=== PATIENT | male | born 1975 | race Caucasian/White ===

== ENCOUNTER 2020-05-29 13:39 | Inpatient (IN) | payer OTHER ==
--- NOTE | 2020-05-29 14:23 | BHS.RME ---
Substance Use & Tx History - Substance Use History Heroin Substance amount: 3-4 bags Frequency of use: Daily Substance route: Inhalation (ex: sniffing or snorting) Date of Last Use: 05/27/20 Nicotine Substance amount: 2 packs Frequency of use: Daily Substance route: Smoking Date of Last Use: 05/28/20 Physical/Psych/Mental Status - Behavior General Behavior: Increased activity (restlessness, agitation) Eye Contact: Normal - Cooperativeness Cooperativeness: Cooperative - Thinking Thought Processes: Tight, Logical, Goal Directed Thought content: Future oriented - Physical Health Problems Is patient presently having any pain?: No Does patient presently have any injuries (include location): No Does patient currently have a fever: No Is patient : No COWS - Scale Resting Pulse: 0= [place] 80 or Below Sweatin=Flushed/Facial Moisture Restless Observation: 3= Extraneous Movement Pupil Size: 2= Moderately Dilated Bone or Joint Aches: 2= Severe Diffuse Aches Runny Nose/ Eye Tearin= Runny Nose/Eyes GI Upset > 30mins: 2= Nausea/Diarrhea Tremor Observation: 2= Slight Tremor Visible Yawning Observation: 2= >3x During Session Anxiety or Irritability: 2=Irritable/Anxious Goose Flesh Skin: 3=Piloerection COWS Score: 22
--- NOTE | 2020-05-29 15:01 | HP ---
<HanAnthony de león - Last Filed: 05/29/20 15:23> COWS - Scale Resting Pulse: 0= [place] 80 or Below Sweatin=Flushed/Facial Moisture Restless Observation: 5= Unable to Sit Still Pupil Size: 2= Moderately Dilated Bone or Joint Aches: 2= Severe Diffuse Aches Runny Nose/ Eye Tearin= Runny Nose/Eyes GI Upset > 30mins: 2= Nausea/Diarrhea Tremor Observation: 2= Slight Tremor Visible Yawning Observation: 2= >3x During Session Anxiety or Irritability: 2=Irritable/Anxious Goose Flesh Skin: 3=Piloerection COWS Score: 24 CIWA Score - Admission Criteria OASAS Guidelines: Admission for Medically Managed Detox: Requires at least one of the followin. CIWA greater than 12 2. Seizures within the past 24 hours 3. Delirium tremens within the past 24 hours 4. Hallucinations within the past 24 hours 5. Acute intervention needed for co occurring medical disorder 6. Acute intervention needed for co occurring psychiatric disorder 7. Severe withdrawal that cannot be handled at a lower level of care (continued vomiting, continued diarrhea, abnormal vital signs) requiring intravenous medication and/or fluids 8. Admitting History and Physical - Admission Chief Complaint: Patient is a 44 year old male with history of asthma, schizoaffective disorder, opiate use disorder, nicotine dependence presents for detox. History of Present Illness: Patient is a 44 year old male with history of asthma, schizoaffective disorder, opiate use disorder, nicotine dependence presents for detox. PMH: asthma PSH: plastic surgery left thumb, left arm, and left leg after dog attack (). Social: lives alone in [facility]. unemployed- former administrated vet assistant Psych: schizoaffective disorder Legal: none - Substance Use History Heroin Substance amount: 3-4 bags Frequency of use: Daily Substance route: Inhalation (ex: sniffing or snorting) Date of Last Use: 05/27/20. First use 35 years old. Nicotine Substance amount: 2 packs Frequency of use: Daily Substance route: Smoking Date of Last Use: 05/28/20. First use 17 years old This is patient's first presentation to [facility] for Detox History Source: Patient Limitations to Obtaining History: Clinical Condition - Smoking History Smoking history: Current every day smoker Have you smoked in the past 12 months: Yes Aproximately how many cigarettes per day: 40 - Alcohol/Substance Use Hx Alcohol Use: No - Social History Usual Living Arrangement: Yes: Alone History of Recent Travel: No Admission [facility] Chief Complaint: Patient is a 44 year old male with history of asthma, schizoaffective disorder, opiate use disorder, nicotine dependence presents for detox. Allergies/Adverse Reactions: Allergies Allergy/AdvReac Type Severity Reaction Status Date / Time No Known Allergies Allergy Verified 05/29/20 15:44 Exam Limitations: Clinical Condition - Ebola screening Have you traveled outside of the country in the last 21 days: No Have you been sick,other than usual withdrawal symptoms: No Do you have a fever: No - Review of Systems Constitutional: No Symptoms Reported EENT: denies: Blurred Vision, Hearing Loss Respiratory: denies: Cough, Shortness of Breath Cardiac: denies: Chest Pain (states chronic for past two years), Palpitations GI: denies: Nausea, Vomiting, Abdominal cramping : denies: Burning, Dysuria Musculoskeletal: reports: Other (diffuse myalgias). denies: Back Pain Integumentary: denies: Lesions, Rash Psychiatric: reports: Anxious Patient History - Patient Medical History Hx Anemia: No Hx Asthma: Yes Hx Chronic Obstructive Pulmonary Disease (COPD): No Hx Cancer: No Hx Cardiac Disorders: No Hx Congestive Heart Failure: No Hx Hypertension: No Hx Hypercholesterolemia: No Hx Pacemaker: No HX Cerebrovascular Accident: No Hx Seizures: No Hx Dementia: No Hx Diabetes: No Hx Gastrointestinal Disorders: No Hx Liver Disease: No Hx Genitourinary Disorders: No Hx Sexually Transmitted Disorders: No Hx Renal Disease (ESRD): No Hx Thyroid Disease: No Hx Human Immunodeficiency Virus (HIV): No Hx Hepatitis C: No Hx Depression: Yes Hx Suicide Attempt: No Hx Schizophrenia: Yes (schizoaffective disorder) - Patient Surgical History Past Surgical History: Yes Other Surgical History: plastic surgery right thumb, left arm, left leg - PPD History Previous Implant?: Yes Documented Results: Negative w/o proof Implanted On Prior [facility] Admission?: No PPD to be Administered?: Yes - Reproductive History Patient is a Female of Child Bearing Age (11 -55 yrs old): No Patient : No - Smoking Cessation Smoking history: Current every day smoker Have you smoked in the past 12 months: Yes Aproximately how many cigarettes per day: 40 Hx Chewing Tobacco Use: No Initiated information on smoking cessation: Yes 'Breaking Loose' booklet given: 05/29/20 - Substance & Tx. History Hx Alcohol Use: No Substance Use Type: Heroin Hx Substance Use Treatment: No - Substances abused Heroin Substance route: Inhalation Amount used: 3-4 bags daily Age of first use: 35 Date of last use: 05/27/20 Admission Physical Exam [facility] - Physical General Appearance: Yes: Appropriately Dressed, Irritable, Other (frequent, suddemn jerking motions with head) HEENTM: Yes: EOMI, Hearing grossly Normal Respiratory: Yes: Lungs Clear, No Respiratory Distress, No Accessory Muscle Use Neck: Yes: Supple Breast: Yes: Breast Exam Deferred Cardiology: Yes: Regular Rhythm, Regular Rate, S1, S2 Abdominal: Yes: Normal Bowel Sounds, Non Tender, Flat, Soft Musculoskeletal: Yes: Within Normal Limits, full range of Motion Extremities: Yes: Within Normal Limits, Normal Range of Motion Neurological: Yes: Alert, Motor Strength 5/5 Integumentary: Yes: Dry, Warm - Diagnostic (1) Opioid dependence with withdrawal Current Visit: Yes Status: Acute (2) Asthma Current Visit: No Status: Chronic Qualifiers: Asthma complication type: unspecified (3) Schizoaffective disorder Current Visit: No Status: Chronic Qualifiers: Schizoaffective disorder type: unspecified Qualified Code(s): F25.9 - Schizoaffective disorder, unspecified Cleared for Admission [facility] - Detox or Rehab [facility] Level of Care: Medically Managed Detox Regimen/Protocol: Methadone Claeared for Rehab Admission: No Breathalyzer - Breathalyzer Breathalyzer: 0 Urine Drug Screen - Test Device Lot number: [id number] Expiration date: 05/13/22 - Control Is test valid?: Yes - Results Drug screen NEGATIVE: No Urine drug screen results: KASSIE-Cocaine, MOP-Opiates Inpatient Rehab Admission - Rehab Decision to Admit Inpatient rehab admission?: No <Gideon Klein - Last Filed: 05/30/20 07:44> CIWA Score - Admission Criteria OASAS Guidelines: Admission for Medically Managed Detox: Requires at least one of the followin. CIWA greater than 12 2. Seizures within the past 24 hours 3. Delirium tremens within the past 24 hours 4. Hallucinations within the past 24 hours 5. Acute intervention needed for co occurring medical disorder 6. Acute intervention needed for co occurring psychiatric disorder 7. Severe withdrawal that cannot be handled at a lower level of care (continued vomiting, continued diarrhea, abnormal vital signs) requiring intravenous medication and/or fluids 8. Admission Physical Exam BHS - Vital Signs Vital Signs: Vital Signs - 24 hr 05/29/20 05/29/20 05/29/20 15:45 16:25 16:45 Temperature 97.9 F 97.1 F L 97.7 F Pulse Rate 71 71 63 Respiratory 20 18 18 Rate Blood Pressure 123/85 131/79 130/72 O2 Sat by Pulse Oximetry (%) 05/29/20 05/30/20 20:48 05:25 Temperature 97.7 F 97.8 F Pulse Rate 73 48 L Respiratory 18 18 Rate Blood Pressure 97/56 L 92/54 L O2 Sat by Pulse 97 97 Oximetry (%) Vital Signs - Vital Signs Vital signs refused: No Temperature: 97.1 F Temperature source: Oral Pulse Rate: 71 Respiratory Rate: 18 Blood Pressure: 131/79 BP Location: Left Arm Blood Pressure position: Sitting - Weight Weight measurement method: Standing scale
[2020-05-29] MEDS ORDERED: MAGNESIUM CITRATE 300 ML BOTTLE PO PRN (15:11)
[2020-05-29] MEDS ORDERED: MENTHOL/PHENOL 1 EACH UD MM PRN (15:11)
[2020-05-29] MEDS ORDERED: BISMUTH SUBSALICYLATE 524 MG/30 ML UD PO PRN (15:11)
[2020-05-29] MEDS ORDERED: MAG HYDROX/AL HYDROX/SIMETH 30 ML UNIT-DOSE CUP PO PRN (15:11)
[2020-05-29] MEDS ORDERED: ACETAMINOPHEN 325 MG TABLET (FP) PO PRN ×2 (15:11)
[2020-05-29] MEDS ORDERED: IBUPROFEN 400 MG TABLET (FP) PO PRN (15:11)
[2020-05-29] MEDS ORDERED: cloNIDine HCL 0.1 MG TABLET PO PRN (15:11)
[2020-05-29] MEDS ORDERED: ONDANSETRON *ODT* 4 MG TABLET SL PRN (15:11)
[2020-05-29] MEDS ORDERED: NICOTINE POLACRILEX 2 MG GUM BUC PRN (15:11)
[2020-05-29 15:47] VITALS: BMI 22.2
[2020-05-29] MEDS ORDERED: METHADONE HCL 10 MG TABLET (FOR DETOX USE ONLY) PO ONE (16:00)
[2020-05-29] MEDS ORDERED: ALBUTEROL SO4 HFA INHALER IH ONE (17:06)
--- NOTE | 2020-05-29 17:06 | PN ---
BHS Progress Note Note: pt w/ h.o asthma requesting inhaler P : Albuterol inhaler ordered
[2020-05-29] MEDS: NICOTINE 21 MG/24 HOURS TOPICAL PATCH TD SCH (17:24)
[2020-05-29] MEDS: ALBUTEROL SO4 HFA INHALER IH PRN (17:25)
[2020-05-29] MEDS: METHOCARBAMOL 500 MG TABLET PO PRN (17:32)
[2020-05-29] MEDS: hydrOXYzine PAMOATE 25 MG CAPSULE (FP) PO SCH ×2 (17:32→22:30)
[2020-05-29] MEDS ORDERED: MELATONIN 5 MG TABLETS PO SCH (22:00)
[2020-05-29] MEDS: MONTELUKAST NA 10 MG TABLET PO SCH (22:30)
[2020-05-29] MEDS: THIAMINE HCL 100 MG TABLET (FP) PO SCH (22:30)
[2020-05-29] MEDS: UMECLIDINIUM BROMIDE IH SCH (23:50)
[2020-05-30] MEDS: hydrOXYzine PAMOATE 25 MG CAPSULE (FP) PO SCH ×5 (05:30→22:25)
--- NOTE | 2020-05-30 08:00 | PN ---
Teaching Attending Note Name of Resident: Anthony Quezada ATTENDING PHYSICIAN STATEMENT I saw and evaluated the patient. I reviewed the resident's note and discussed the case with the resident. I agree with the resident's findings and plan as documented. SUBJECTIVE: OBJECTIVE: ASSESSMENT AND PLAN: I agree with resident's plan for detox
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
[2020-05-30] MEDS ORDERED: METHADONE HCL 10 MG TABLET (FOR DETOX USE ONLY) ONE (09:34)
[2020-05-30] MEDS ORDERED: METHADONE HCL 5 MG TABLET (FOR DETOX USE ONLY) ONE (09:34)
[2020-05-30] MEDS ORDERED: METHADONE (DETOX) 20 MG, METHADONE (DETOX) 5 MG PO ONE (10:00)
[2020-05-30] MEDS: NICOTINE 21 MG/24 HOURS TOPICAL PATCH TD SCH (10:11)
[2020-05-30] MEDS: PRENATAL VITAMINS W/ FOLIC ACID TABLET (FP) PO SCH (10:11)
[2020-05-30 10:23] LABS: HEMATOCRIT 43.3 % (35.4-49); HEMOGLOBIN 14.8 GM/dL (11.7-16.9); MCHC 34.2 g/dl (32.0-35.9); MEAN CELL VOLUME 90.5 fl (80-96); MEAN PLT VOLUME 8.8 fl (7.5-11.1); PLATELET COUNT 182 K/MM3 (134-434); RBC 4.78 M/mm3 (4.00-5.60); RDW 13.4 % (11.9-15.9); WHITE BLOOD COUNT 8.5 K/mm3 (4.0-10.0)
[2020-05-30 10:31] LABS: ALBUMIN 3.7 g/dl (3.4-5.0); BLOOD UREA NITROGEN 16.4 mg/dL (7-18); CALCIUM 8.8 mg/dL (8.5-10.1); POTASSIUM 4.3 mmol/L (3.5-5.1)
[2020-05-30 10:34] LABS: BILIRUBIN,TOTAL 0.9 mg/dL (0.2-1); CREATININE 1.1 mg/dL (0.55-1.3); TOT PROT 6.2 g/dl (6.4-8.2)
--- NOTE | 2020-05-30 10:38 | EKG ---
Test Reason : Blood Pressure : / mmHG Vent. Rate : 061 BPM Atrial Rate : 061 BPM P-R Int : 142 ms QRS Dur : 098 ms QT Int : 402 ms P-R-T Axes : 057 063 065 degrees QTc Int : 404 ms NORMAL SINUS RHYTHM NORMAL ECG NO PREVIOUS ECGS AVAILABLE Confirmed by STUART BENJAMIN MD ([id number]) on 05/30/2020 10:37:42 AM Referred By: Confirmed By:STUART BENJAMIN MD
[2020-05-30] MEDS: SALMETEROL IH SCH (10:58)
[2020-05-30] MEDS: FLUTICASONE IH SCH (10:58)
[2020-05-30] MEDS: [UNRECOGNIZED DRUG - OTHER] IH SCH (10:58)
[2020-05-30] MEDS: SERTRALINE HCL 50 MG TABLET (FP) PO SCH (10:58)
[2020-05-30] MEDS: UMECLIDINIUM BROMIDE IH SCH ×2 (10:58→22:24)
--- NOTE | 2020-05-30 14:00 | PN ---
BHS COWS - Scale Resting Pulse: 0= [place] 80 or Below Sweatin= No chills or Flushing Restless Observation: 0= Sits Still Pupil Size: 1= Pupils >than Normal Bone or Joint Aches: 1= Mild Discomfort Runny Nose/ Eye Tearin= Nasal Congestion GI Upset > 30mins: 2= Nausea/Diarrhea Tremor Observation of Outstretched Hands: 2= Slight Tremor Visible Yawning Observation: 1= 1-2x During Session Anxiety or Irritability: 2=Irritable/Anxious Goose Flesh Skin: 0=Smooth Skin COWS Score: 10 BHS Progress Note (SOAP) Subjective: alert,irritable,anxious,interrupted sleep,pain in the body and back,aching pain Objective: 05/30/20 15:37 Vital Signs Temperature 98.1 F 05/30/20 12:48 Pulse Rate 74 05/30/20 12:48 Respiratory Rate 17 05/30/20 12:48 Blood Pressure 98/52 L 05/30/20 12:48 O2 Sat by Pulse Oximetry (%) 99 05/30/20 12:48 05/30/20 15:37 Laboratory Last Values WBC 8.5 K/mm3 (4.0-10.0) 05/30/20 07:50 RBC 4.78 M/mm3 (4.00-5.60) 05/30/20 07:50 Hgb 14.8 GM/dL (11.7-16.9) 05/30/20 07:50 Hct 43.3 % (35.4-49) 05/30/20 07:50 MCV 90.5 fl (80-96) 05/30/20 07:50 MCH 31.0 pg (25.7-33.7) 05/30/20 07:50 MCHC 34.2 g/dl (32.0-35.9) 05/30/20 07:50 RDW 13.4 % (11.9-15.9) 05/30/20 07:50 Plt Count 182 K/MM3 (134-434) 05/30/20 07:50 MPV 8.8 fl (7.5-11.1) 05/30/20 07:50 Sodium 142 mmol/L (136-145) 05/30/20 07:50 Potassium 4.3 mmol/L (3.5-5.1) 05/30/20 07:50 Chloride 110 mmol/L (98-107) H 05/30/20 07:50 Carbon Dioxide 28 mmol/L (21-32) 05/30/20 07:50 Anion Gap 4 MMOL/L (8-16) L 05/30/20 07:50 BUN 16.4 mg/dL (7-18) 05/30/20 07:50 Creatinine 1.1 mg/dL (0.55-1.3) 05/30/20 07:50 Est GFR (CKD-EPI)AfAm 94.13 05/30/20 07:50 Est GFR (CKD-EPI)NonAf 81.21 05/30/20 07:50 Random Glucose 82 mg/dL (74-106) 05/30/20 07:50 Calcium 8.8 mg/dL (8.5-10.1) 05/30/20 07:50 Total Bilirubin 0.9 mg/dL (0.2-1) 05/30/20 07:50 AST 16 U/L (15-37) 05/30/20 07:50 ALT 27 U/L (13-61) 05/30/20 07:50 Alkaline Phosphatase 81 U/L (45-117) 05/30/20 07:50 Total Protein 6.2 g/dl (6.4-8.2) L 05/30/20 07:50 Albumin 3.7 g/dl (3.4-5.0) 05/30/20 07:50 Syphilis Serology Non-reactive (NONREACTIVE) 05/30/20 07:50 Assessment: 05/30/20 15:38 withdrawal symptom Plan: continue detox methadone regimen,Dr Barfield consultation greatly appreciated
[2020-05-30] MEDS: METHOCARBAMOL 500 MG TABLET PO PRN (19:12)
[2020-05-30] MEDS: THIAMINE HCL 100 MG TABLET (FP) PO SCH (22:22)
[2020-05-30] MEDS: BENZTROPINE MESYLATE 1 MG TABLET PO SCH (22:22)
[2020-05-30] MEDS: risperiDONE 2 MG TABLET PO SCH (22:22)
[2020-05-30] MEDS: MONTELUKAST NA 10 MG TABLET PO SCH (22:22)
[2020-05-30] MEDS: ALBUTEROL SO4 HFA INHALER IH PRN (22:24)
[2020-05-31] MEDS: hydrOXYzine PAMOATE 25 MG CAPSULE (FP) PO SCH ×5 (07:13→22:06)
[2020-05-31] MEDS ORDERED: METHADONE HCL 10 MG TABLET (FOR DETOX USE ONLY) PO ONE (10:00)
--- NOTE | 2020-05-31 10:26 | PN ---
BHS COWS - Scale Resting Pulse: 0= [place] 80 or Below Sweatin= Chills/Flushing Restless Observation: 1= Difficult to Sit Still Pupil Size: 0= Normal to Room Light Bone or Joint Aches: 2= Severe Diffuse Aches Runny Nose/ Eye Tearin= None GI Upset > 30mins: 0= None Tremor Observation of Outstretched Hands: 2= Slight Tremor Visible Yawning Observation: 0= None Anxiety or Irritability: 1=Feels Anxious/Irritable Goose Flesh Skin: 0=Smooth Skin COWS Score: 7 BHS Progress Note (SOAP) Subjective: Complaints of anxiety, tremors, sweats and body aches. Objective: 05/31/20 10:24 Vital Signs 05/31/20 05:53 Temperature 97.8 F Pulse Rate 56 L Respiratory 16 Rate Blood Pressure 99/66 O2 Sat by Pulse 96 Oximetry (%) Laboratory Last Values WBC 8.5 K/mm3 (4.0-10.0) 05/30/20 07:50 RBC 4.78 M/mm3 (4.00-5.60) 05/30/20 07:50 Hgb 14.8 GM/dL (11.7-16.9) 05/30/20 07:50 Hct 43.3 % (35.4-49) 05/30/20 07:50 MCV 90.5 fl (80-96) 05/30/20 07:50 MCH 31.0 pg (25.7-33.7) 05/30/20 07:50 MCHC 34.2 g/dl (32.0-35.9) 05/30/20 07:50 RDW 13.4 % (11.9-15.9) 05/30/20 07:50 Plt Count 182 K/MM3 (134-434) 05/30/20 07:50 MPV 8.8 fl (7.5-11.1) 05/30/20 07:50 Sodium 142 mmol/L (136-145) 05/30/20 07:50 Potassium 4.3 mmol/L (3.5-5.1) 05/30/20 07:50 Chloride 110 mmol/L (98-107) H 05/30/20 07:50 Carbon Dioxide 28 mmol/L (21-32) 05/30/20 07:50 Anion Gap 4 MMOL/L (8-16) L 05/30/20 07:50 BUN 16.4 mg/dL (7-18) 05/30/20 07:50 Creatinine 1.1 mg/dL (0.55-1.3) 05/30/20 07:50 Est GFR (CKD-EPI)AfAm 94.13 05/30/20 07:50 Est GFR (CKD-EPI)NonAf 81.21 05/30/20 07:50 Random Glucose 82 mg/dL (74-106) 05/30/20 07:50 Calcium 8.8 mg/dL (8.5-10.1) 05/30/20 07:50 Total Bilirubin 0.9 mg/dL (0.2-1) 05/30/20 07:50 AST 16 U/L (15-37) 05/30/20 07:50 ALT 27 U/L (13-61) 05/30/20 07:50 Alkaline Phosphatase 81 U/L (45-117) 05/30/20 07:50 Total Protein 6.2 g/dl (6.4-8.2) L 05/30/20 07:50 Albumin 3.7 g/dl (3.4-5.0) 05/30/20 07:50 Syphilis Serology Non-reactive (NONREACTIVE) 05/30/20 07:50 COVID-19 (LINDA) Not detected (Not Detected) 05/29/20 16:00 Labs noted. Assessment: 05/31/20 10:25 Alert and oriented x 3, in no acute respiratory distress. Full ROM, ambulating in the unit without assistance. Withdrawal symptoms. Plan: Continue detox protocol
[2020-05-31] MEDS: UMECLIDINIUM BROMIDE IH SCH ×2 (10:40→22:04)
[2020-05-31] MEDS: [UNRECOGNIZED DRUG - OTHER] IH SCH (10:40)
[2020-05-31] MEDS: FLUTICASONE IH SCH (10:40)
[2020-05-31] MEDS: ALBUTEROL SO4 HFA INHALER IH PRN (10:40)
[2020-05-31] MEDS: SALMETEROL IH SCH (10:40)
[2020-05-31] MEDS: SERTRALINE HCL 50 MG TABLET (FP) PO SCH (10:41)
[2020-05-31] MEDS: NICOTINE POLACRILEX 4 MG GUM BUC PRN ×2 (10:42→14:06)
[2020-05-31] MEDS: PRENATAL VITAMINS W/ FOLIC ACID TABLET (FP) PO SCH (10:42)
[2020-05-31] MEDS: NICOTINE 21 MG/24 HOURS TOPICAL PATCH TD SCH (10:42)
[2020-05-31] MEDS: METHOCARBAMOL 500 MG TABLET PO PRN (17:21)
[2020-05-31] MEDS: risperiDONE 2 MG TABLET PO SCH (22:05)
[2020-05-31] MEDS: BENZTROPINE MESYLATE 1 MG TABLET PO SCH (22:05)
[2020-05-31] MEDS: THIAMINE HCL 100 MG TABLET (FP) PO SCH (22:06)
[2020-05-31] MEDS: MELATONIN 5 MG TABLETS PO PRN (22:06)
[2020-05-31] MEDS: MONTELUKAST NA 10 MG TABLET PO SCH (22:06)
[2020-05-31] MEDS: MAGNESIUM HYDROX 2400MG/30ML ORAL SUSPENSION 30 ML CUP PO PRN (22:35)
[2020-06-01] MEDS: hydrOXYzine PAMOATE 25 MG CAPSULE (FP) PO SCH ×5 (06:37→21:43)
[2020-06-01] MEDS ORDERED: METHADONE HCL 10 MG TABLET (FOR DETOX USE ONLY) ONE (09:10)
[2020-06-01] MEDS ORDERED: METHADONE HCL 5 MG TABLET (FOR DETOX USE ONLY) ONE (09:10)
[2020-06-01] MEDS ORDERED: METHADONE (DETOX) 10 MG, METHADONE (DETOX) 5 MG PO ONE (10:00)
[2020-06-01] MEDS: UMECLIDINIUM BROMIDE IH SCH ×2 (10:19→21:42)
[2020-06-01] MEDS: [UNRECOGNIZED DRUG - OTHER] IH SCH (10:20)
[2020-06-01] MEDS: PRENATAL VITAMINS W/ FOLIC ACID TABLET (FP) PO SCH (10:20)
[2020-06-01] MEDS: FLUTICASONE IH SCH (10:20)
[2020-06-01] MEDS: SERTRALINE HCL 50 MG TABLET (FP) PO SCH (10:20)
[2020-06-01] MEDS: SALMETEROL IH SCH (10:20)
[2020-06-01] MEDS: NICOTINE 21 MG/24 HOURS TOPICAL PATCH TD SCH (10:21)
--- NOTE | 2020-06-01 13:20 | PN ---
BHS COWS - Scale Resting Pulse: 1= [place] 81-100 Sweatin= No chills or Flushing Restless Observation: 1= Difficult to Sit Still Pupil Size: 0= Normal to Room Light Bone or Joint Aches: 2= Severe Diffuse Aches Runny Nose/ Eye Tearin= None GI Upset > 30mins: 0= None Tremor Observation of Outstretched Hands: 1= Tremor [place], Not Seen Yawning Observation: 0= None Anxiety or Irritability: 2=Irritable/Anxious Goose Flesh Skin: 0=Smooth Skin COWS Score: 7 BHS Progress Note (SOAP) Subjective: complaints of sweats, joint aches, anxiety and tremors. Objective: 06/01/20 13:19 Vital Signs 06/01/20 09:07 Temperature 98.9 F Pulse Rate 96 H Respiratory 18 Rate Blood Pressure 94/62 Laboratory Last Values WBC 8.5 K/mm3 (4.0-10.0) 05/30/20 07:50 RBC 4.78 M/mm3 (4.00-5.60) 05/30/20 07:50 Hgb 14.8 GM/dL (11.7-16.9) 05/30/20 07:50 Hct 43.3 % (35.4-49) 05/30/20 07:50 MCV 90.5 fl (80-96) 05/30/20 07:50 MCH 31.0 pg (25.7-33.7) 05/30/20 07:50 MCHC 34.2 g/dl (32.0-35.9) 05/30/20 07:50 RDW 13.4 % (11.9-15.9) 05/30/20 07:50 Plt Count 182 K/MM3 (134-434) 05/30/20 07:50 MPV 8.8 fl (7.5-11.1) 05/30/20 07:50 Sodium 142 mmol/L (136-145) 05/30/20 07:50 Potassium 4.3 mmol/L (3.5-5.1) 05/30/20 07:50 Chloride 110 mmol/L (98-107) H 05/30/20 07:50 Carbon Dioxide 28 mmol/L (21-32) 05/30/20 07:50 Anion Gap 4 MMOL/L (8-16) L 05/30/20 07:50 BUN 16.4 mg/dL (7-18) 05/30/20 07:50 Creatinine 1.1 mg/dL (0.55-1.3) 05/30/20 07:50 Est GFR (CKD-EPI)AfAm 94.13 05/30/20 07:50 Est GFR (CKD-EPI)NonAf 81.21 05/30/20 07:50 Random Glucose 82 mg/dL (74-106) 05/30/20 07:50 Calcium 8.8 mg/dL (8.5-10.1) 05/30/20 07:50 Total Bilirubin 0.9 mg/dL (0.2-1) 05/30/20 07:50 AST 16 U/L (15-37) 05/30/20 07:50 ALT 27 U/L (13-61) 05/30/20 07:50 Alkaline Phosphatase 81 U/L (45-117) 05/30/20 07:50 Total Protein 6.2 g/dl (6.4-8.2) L 05/30/20 07:50 Albumin 3.7 g/dl (3.4-5.0) 05/30/20 07:50 Syphilis Serology Non-reactive (NONREACTIVE) 05/30/20 07:50 COVID-19 (LINDA) Not detected (Not Detected) 05/29/20 16:00 Labs noted. Assessment: 06/01/20 13:19 Patient was seen and examined at bedside. Alert and oriented x 3, in no acute respiratory distress. Full ROM, ambulatory without assistance. Withdrawal symptoms. Plan: Continue detox protocol.
[2020-06-01] MEDS: NICOTINE POLACRILEX 4 MG GUM BUC PRN ×3 (13:33→21:50)
[2020-06-01] MEDS ORDERED: IBUPROFEN 400 MG TABLET (FP) PO PRN (19:09)
[2020-06-01] MEDS: MONTELUKAST NA 10 MG TABLET PO SCH (21:42)
[2020-06-01] MEDS: BENZTROPINE MESYLATE 1 MG TABLET PO SCH (21:43)
[2020-06-01] MEDS: risperiDONE 2 MG TABLET PO SCH (21:43)
[2020-06-01] MEDS: THIAMINE HCL 100 MG TABLET (FP) PO SCH (21:44)
[2020-06-01] MEDS: MELATONIN 5 MG TABLETS PO PRN (21:45)
[2020-06-01] MEDS: ALBUTEROL SO4 HFA INHALER IH PRN (21:49)
[2020-06-01] MEDS: MAGNESIUM HYDROX 2400MG/30ML ORAL SUSPENSION 30 ML CUP PO PRN (22:07)
[2020-06-02] MEDS: NICOTINE POLACRILEX 4 MG GUM BUC PRN ×4 (05:35→21:39)
[2020-06-02] MEDS: hydrOXYzine PAMOATE 25 MG CAPSULE (FP) PO SCH ×5 (05:35→21:36)
[2020-06-02] MEDS: ALBUTEROL SO4 HFA INHALER IH PRN (05:38)
[2020-06-02] MEDS ORDERED: METHADONE HCL 10 MG TABLET (FOR DETOX USE ONLY) PO ONE (10:00)
[2020-06-02] MEDS: PRENATAL VITAMINS W/ FOLIC ACID TABLET (FP) PO SCH (10:22)
[2020-06-02] MEDS: [UNRECOGNIZED DRUG - OTHER] IH SCH (10:23)
[2020-06-02] MEDS: UMECLIDINIUM BROMIDE IH SCH ×2 (10:23→21:36)
[2020-06-02] MEDS: FLUTICASONE IH SCH (10:23)
[2020-06-02] MEDS: NICOTINE 21 MG/24 HOURS TOPICAL PATCH TD SCH (10:23)
[2020-06-02] MEDS: SALMETEROL IH SCH (10:23)
[2020-06-02] MEDS: SERTRALINE HCL 50 MG TABLET (FP) PO SCH (10:25)
--- NOTE | 2020-06-02 10:42 | PN ---
BHS COWS - Scale Resting Pulse: 0= [place] 80 or Below Sweatin= No chills or Flushing Restless Observation: 0= Sits Still Pupil Size: 1= Pupils >than Normal Bone or Joint Aches: 1= Mild Discomfort Runny Nose/ Eye Tearin= Nasal Congestion GI Upset > 30mins: 1= Stomach Cramp Tremor Observation of Outstretched Hands: 2= Slight Tremor Visible Yawning Observation: 1= 1-2x During Session Anxiety or Irritability: 2=Irritable/Anxious Goose Flesh Skin: 0=Smooth Skin COWS Score: 9 BHS Progress Note (SOAP) Subjective: alert,irritable,anxious,interrupted sleep,aching pain of body and back, Objective: 06/02/20 10:41 Vital Signs Temperature 96.3 F L 06/02/20 08:35 Pulse Rate 65 06/02/20 08:35 Respiratory Rate 20 06/02/20 08:35 Blood Pressure 100/65 06/02/20 08:35 O2 Sat by Pulse Oximetry (%) 96 06/02/20 05:24 Laboratory Last Values WBC 8.5 K/mm3 (4.0-10.0) 05/30/20 07:50 RBC 4.78 M/mm3 (4.00-5.60) 05/30/20 07:50 Hgb 14.8 GM/dL (11.7-16.9) 05/30/20 07:50 Hct 43.3 % (35.4-49) 05/30/20 07:50 MCV 90.5 fl (80-96) 05/30/20 07:50 MCH 31.0 pg (25.7-33.7) 05/30/20 07:50 MCHC 34.2 g/dl (32.0-35.9) 05/30/20 07:50 RDW 13.4 % (11.9-15.9) 05/30/20 07:50 Plt Count 182 K/MM3 (134-434) 05/30/20 07:50 MPV 8.8 fl (7.5-11.1) 05/30/20 07:50 Sodium 142 mmol/L (136-145) 05/30/20 07:50 Potassium 4.3 mmol/L (3.5-5.1) 05/30/20 07:50 Chloride 110 mmol/L (98-107) H 05/30/20 07:50 Carbon Dioxide 28 mmol/L (21-32) 05/30/20 07:50 Anion Gap 4 MMOL/L (8-16) L 05/30/20 07:50 BUN 16.4 mg/dL (7-18) 05/30/20 07:50 Creatinine 1.1 mg/dL (0.55-1.3) 05/30/20 07:50 Est GFR (CKD-EPI)AfAm 94.13 05/30/20 07:50 Est GFR (CKD-EPI)NonAf 81.21 05/30/20 07:50 Random Glucose 82 mg/dL (74-106) 05/30/20 07:50 Calcium 8.8 mg/dL (8.5-10.1) 05/30/20 07:50 Total Bilirubin 0.9 mg/dL (0.2-1) 05/30/20 07:50 AST 16 U/L (15-37) 05/30/20 07:50 ALT 27 U/L (13-61) 05/30/20 07:50 Alkaline Phosphatase 81 U/L (45-117) 05/30/20 07:50 Total Protein 6.2 g/dl (6.4-8.2) L 05/30/20 07:50 Albumin 3.7 g/dl (3.4-5.0) 05/30/20 07:50 Syphilis Serology Non-reactive (NONREACTIVE) 05/30/20 07:50 COVID-19 (LINDA) Not detected (Not Detected) 05/29/20 16:00 Assessment: 06/02/20 10:42 withdrawal symptom Plan: continue detox methadone regimen,discharge in am
[2020-06-02] MEDS: risperiDONE 2 MG TABLET PO SCH (21:36)
[2020-06-02] MEDS: BENZTROPINE MESYLATE 1 MG TABLET PO SCH (21:36)
[2020-06-02] MEDS: THIAMINE HCL 100 MG TABLET (FP) PO SCH (21:36)
[2020-06-02] MEDS: MONTELUKAST NA 10 MG TABLET PO SCH (21:36)
[2020-06-02] MEDS: MELATONIN 5 MG TABLETS PO PRN (21:37)
[2020-06-03] MEDS ORDERED: METHADONE HCL 5 MG TABLET (FOR DETOX USE ONLY) PO ONE (06:00)
[2020-06-03] MEDS: hydrOXYzine PAMOATE 25 MG CAPSULE (FP) PO SCH ×2 (06:07→10:24)
[2020-06-03] MEDS: ALBUTEROL SO4 HFA INHALER IH PRN (09:04)
[2020-06-03] MEDS: SALMETEROL IH SCH (09:05)
[2020-06-03] MEDS: [UNRECOGNIZED DRUG - OTHER] IH SCH (09:05)
[2020-06-03] MEDS: FLUTICASONE IH SCH (09:05)
[2020-06-03] MEDS: NICOTINE POLACRILEX 4 MG GUM BUC PRN (09:20)
[2020-06-03] MEDS: SERTRALINE HCL 50 MG TABLET (FP) PO SCH (10:24)
[2020-06-03] MEDS: NICOTINE 21 MG/24 HOURS TOPICAL PATCH TD SCH (10:25)
[2020-06-03] MEDS: PRENATAL VITAMINS W/ FOLIC ACID TABLET (FP) PO SCH (10:25)
[2020-06-03] MEDS: UMECLIDINIUM BROMIDE IH SCH (10:25)
[2020-06-03 11:20] VITALS: BP 98/58; PULSE 74; TEMP 97.3
--- NOTE | 2020-06-03 11:38 | PN ---
BHS COWS - Scale Resting Pulse: 0= [place] 80 or Below Sweatin= No chills or Flushing Restless Observation: 0= Sits Still Pupil Size: 0= Normal to Room Light Bone or Joint Aches: 0= None Runny Nose/ Eye Tearin= None GI Upset > 30mins: 0= None Tremor Observation of Outstretched Hands: 0= None Yawning Observation: 0= None Anxiety or Irritability: 1=Feels Anxious/Irritable Goose Flesh Skin: 0=Smooth Skin COWS Score: 1 BHS Progress Note (SOAP) Subjective: alert,no complaint Objective: 06/03/20 11:37 Vital Signs Temperature 97.3 F L 06/03/20 08:43 Pulse Rate 74 06/03/20 08:43 Respiratory Rate 16 06/03/20 08:43 Blood Pressure 98/58 L 06/03/20 08:43 O2 Sat by Pulse Oximetry (%) 99 06/03/20 08:43 Assessment: 06/03/20 11:39 detox completed,no withdrawal symptom Plan: stable for discharge today,follow up with after care program as arrangement [facility] for evaluation
--- NOTE | 2020-06-03 11:42 | DS ---
[facility] Detox Discharge Summary Admission Date: 05/29/20 Discharge Date: 06/03/20 - History Present History: Opioid Dependence Additional Comments: alert,oriented x3 ambulation on the unit lung clear bilaterally on auscultation no abdominal pain no swelling of legs stable for discharge today follow up with after care program as arrangement ,[facility] also medical provider and [employer] left the unit in stable condiction total time spending on discharge 35 minutes Pertinent Past History: asthma schizoaffective disorder - Physical Exam Results Vital Signs: Vital Signs Temperature 97.3 F L 06/03/20 08:43 Pulse Rate 74 06/03/20 08:43 Respiratory Rate 16 06/03/20 08:43 Blood Pressure 98/58 L 06/03/20 08:43 O2 Sat by Pulse Oximetry (%) 99 06/03/20 08:43 Pertinent Admission Physical Exam Findings: withdrawal signs and symptom Laboratory Last Values WBC 8.5 K/mm3 (4.0-10.0) 05/30/20 07:50 RBC 4.78 M/mm3 (4.00-5.60) 05/30/20 07:50 Hgb 14.8 GM/dL (11.7-16.9) 05/30/20 07:50 Hct 43.3 % (35.4-49) 05/30/20 07:50 MCV 90.5 fl (80-96) 05/30/20 07:50 MCH 31.0 pg (25.7-33.7) 05/30/20 07:50 MCHC 34.2 g/dl (32.0-35.9) 05/30/20 07:50 RDW 13.4 % (11.9-15.9) 05/30/20 07:50 Plt Count 182 K/MM3 (134-434) 05/30/20 07:50 MPV 8.8 fl (7.5-11.1) 05/30/20 07:50 Sodium 142 mmol/L (136-145) 05/30/20 07:50 Potassium 4.3 mmol/L (3.5-5.1) 05/30/20 07:50 Chloride 110 mmol/L (98-107) H 05/30/20 07:50 Carbon Dioxide 28 mmol/L (21-32) 05/30/20 07:50 Anion Gap 4 MMOL/L (8-16) L 05/30/20 07:50 BUN 16.4 mg/dL (7-18) 05/30/20 07:50 Creatinine 1.1 mg/dL (0.55-1.3) 05/30/20 07:50 Est GFR (CKD-EPI)AfAm 94.13 05/30/20 07:50 Est GFR (CKD-EPI)NonAf 81.21 05/30/20 07:50 Random Glucose 82 mg/dL (74-106) 05/30/20 07:50 Calcium 8.8 mg/dL (8.5-10.1) 05/30/20 07:50 Total Bilirubin 0.9 mg/dL (0.2-1) 05/30/20 07:50 AST 16 U/L (15-37) 05/30/20 07:50 ALT 27 U/L (13-61) 05/30/20 07:50 Alkaline Phosphatase 81 U/L (45-117) 05/30/20 07:50 Total Protein 6.2 g/dl (6.4-8.2) L 05/30/20 07:50 Albumin 3.7 g/dl (3.4-5.0) 05/30/20 07:50 Syphilis Serology Non-reactive (NONREACTIVE) 05/30/20 07:50 COVID-19 (LINDA) Not detected (Not Detected) 05/29/20 16:00 - Treatment Hospital Course: Detox Protocol Followed, Detoxed Safely, Responded well, Discharged Condition Good Patient has Accepted a Rehab Referral to: declined - Medication Discharge Medications: Ambulatory Orders Albuterol Sulfate Inhaler - [Ventolin Hfa Inhaler -] 2 inh PO Q4H PRN 05/29/20 Fluticasone/Salmeterol [Fluticasone-Salmeterol 55-14] 1 each IH DAILY 05/29/20 Montelukast Na [Singulair -] 10 mg PO HS 05/29/20 Risperidone [Risperdal] 4 mg PO HS 05/29/20 Sertraline HCl [Zoloft] 100 mg PO DAILY 05/29/20 Umeclidinium [place] [Incruse Ellipta] 62.5 mcg IH BID 05/29/20 - Diagnosis (1) Opioid dependence with withdrawal Current Visit: Yes Status: Acute (2) Nicotine dependence Current Visit: Yes Status: Chronic (3) Asthma Current Visit: No Status: Chronic Qualifiers: Asthma complication type: unspecified (4) Schizoaffective disorder Current Visit: No Status: Chronic Qualifiers: Schizoaffective disorder type: unspecified Qualified Code(s): F25.9 - Schizoaffective disorder, unspecified - AMA Did Patient Leave Against Medical Advice: No
== END 2020-06-03 11:25 | disposition home or self-care (01) | DRG 773 ==
LOC: YASAS 13:39 → Y6N 15:39
PROVIDERS: ADMIT Allergy & Immunology; ATTEND Allergy & Immunology
PROC: HZ2ZZZZ Detoxification Services for Substance Abuse Treatment (ICD-10-PCS; principal; 2020-05-29)
DX: F11.23 Opioid dependence with withdrawal (principal); F17.210 Nicotine dependence, cigarettes, uncomplicated; F19.280 Other psychoactive substance dependence with psychoactive substance-induced anxiety disorder; F19.282 Other psychoactive substance dependence with psychoactive substance-induced sleep disorder; F25.9 Schizoaffective disorder, unspecified; J45.909 Unspecified asthma, uncomplicated; Z62.810 Personal history of physical and sexual abuse in childhood; Z91.410 Personal history of adult physical and sexual abuse; Z98.890 Other specified postprocedural states; Z56.0 Unemployment, unspecified
CPT/HCPCS: 36415; 80053; 85027; 86780; 93005; 93010; J0735; Q0162; U0003